=== PATIENT | female | born 1990 | race Caucasian/White ===

== ENCOUNTER 2016-08-15 18:07 | Emergency (ER) | payer OTHER ==
[~2016-08-15] VITALS: Ht 162.6 cm; Wt 77.1 kg
--- NOTE | ~2016-08-15 | EKG ---
[place] [address] [facility] [place] [address] ELECTROCARDIOGRAM REPORT Name: JOVANNA HENRY Room #: [facility] Wright#: [id number] Admission: 08/15/16 Attend Phys: Discharge: 08/15/16 Date of : [birth year] Report #: [id number] THIS REPORT FOR: //name// [facility] ED Test Date: 2016-08-15 Test Time: 18:19:39 Pat Name: JOVANNA HENRY Department: Room: Gender: F Parachute Mender: neha : 1990 Requested By: Jacqui Crockett Order Number: [id number] MD: Noe Sheriff Measurements Intervals [place] Rate: 109 P: 55 [place]: 154 QRS: 47 QRSD: 84 T: 36 QT: 316 QTc: 426 Interpretive Statements Sinus tachycardia Borderline T abnormalities, anterior leads No previous ECG available for comparison Electronically Signed On 08-16-2016 15:58:38 CDT by Noe Sheriff [email or web address] <ELECTRONICALLY SIGNED> By: Noe Sheriff MD, [facility] 08/16/16 1558 1819 1819 Noe Sheriff MD, FACC /EPI
[~2016-08-15 18:07] MED LIST: BACTRIM DS TAB1 EACH PO; LANTUS100 UNIT/M SUBQ; NORCO 5-325 TA1 EACH PO; NOVOLOG100 UNIT/1 SUBQ
[2016-08-15 18:41] LABS: ABSOLUTE NEUTROPHILS 4.9 thou/uL (1.4-8.2); BASOPHILS 0.7 % (0.0-2.0); EOSINOPHILS 3.7 % (0.0-3.0); HEMATOCRIT 41.3 % (37.0-47.0); HEMOGLOBIN 14.1 gm/dL (12.0-15.0); LYMPHOCYTES 26.9 % (24.0-44.0); MCH 28.1 pg (26.0-34.0); MCV 82.5 fL (80.0-100.0); MONOCYTES 7.9 % (1.0-8.0); PLATELET COUNT 301 thou/uL (150-400); POLYS 60.8 % (36.0-66.0); RBC 5.01 mil/uL (4.20-5.00); RDW 12.4 % (10.5-14.5); WBC 8.1 thou/uL (4.0-11.0)
[2016-08-15 18:45] LABS: MANUAL DIFF NO
[2016-08-15 18:52] LABS: URINE BILIRUBIN NEGATIVE (Negative); URINE BLOOD NEGATIVE (Negative); URINE COLOR YELLOW; URINE GLUCOSE-RANDOM* 3+ (Negative); URINE KETONES 1+ (Negative); URINE NITRITE NEGATIVE (Negative); URINE PROTEIN (DIPSTICK) NEGATIVE (Negative); URINE SPECIFIC GRAVITY 1.015 (1.003-1.035); URINE UROBILINOGEN 0.2 E.U./dl (0.2-1.0)
[2016-08-15 18:52] LABS: CALCIUM 9.8 mg/dL (8.5-10.1); CREATININE 0.8 mg/dL (0.6-1.0); POTASSIUM 3.6 mmol/L (3.5-5.1)
[2016-08-15 18:58] LABS: ALBUMIN 3.5 g/dL (3.4-5.0); TOTAL BILIRUBIN 0.5 mg/dL (<0.1-1.0); TOTAL PROTEIN 7.5 g/dL (6.4-8.2)
[2016-08-15 19:02] LABS: AMP/METHAMP Negative (Negative); BARBITURATES Negative (Negative); BENZODIAZEPINES Negative (Negative); COCAINE Negative (Negative); METHADONE Negative (Negative); OPIATES Negative (Negative); PCP Negative (Negative); THC Negative (Negative)
[2016-08-15 20:40] VITALS: BP 121/71
== END 2016-08-15 20:40 | disposition home or self-care (01) ==
LOC: ER 18:07
PROVIDERS: Physician Assistant
DX: R00.0 Tachycardia, unspecified (principal); E11.9 Type 2 diabetes mellitus without complications; Z88.0 Allergy status to penicillin

== ENCOUNTER 2018-11-18 16:50 | Emergency (ER) | payer OTHER ==
[~2018-11-18] VITALS: Ht 162.6 cm; Wt 81.7 kg
[2018-11-18] MEDS ORDERED: NOVOLOG100 UNIT/1 SUBQ (16:57)
[2018-11-18 17:19] LABS: URINE BILIRUBIN NEGATIVE (Negative); URINE BLOOD NEGATIVE (Negative); URINE CLARITY CLEAR; URINE COLOR YELLOW; URINE KETONES NEGATIVE (Negative); URINE LEUKOCYTES-REFLEX NEGATIVE (Negative); URINE NITRITE-REFLEX NEGATIVE (Negative); URINE PROTEIN (DIPSTICK) NEGATIVE (Negative); URINE SPECIFIC GRAVITY 1.025 (1.005-1.035); URINE UROBILINOGEN 0.2 E.U./dl (0.2-1.0)
[2018-11-18 17:23] LABS: URINE GLUCOSE-RANDOM* 3+ (Negative)
[2018-11-18 17:36] LABS: BASOPHILS 0.5 % (0.0-2.0); EOSINOPHILS 1.8 % (0.0-3.0); HEMATOCRIT 39.1 % (37.0-47.0); HEMOGLOBIN 12.7 gm/dL (12.0-15.0); LYMPHOCYTES 17.6 % (24.0-44.0); MCHC 32.5 g/dL (28.0-37.0); MCV 80.1 fL (80.0-100.0); MONOCYTES 7.8 % (1.0-8.0); PLATELET COUNT 299 thou/uL (150-400); POLYS 72.3 % (36.0-66.0); RBC 4.88 mil/uL (4.20-5.00); RDW 14.3 % (10.5-14.5)
[2018-11-18 17:45] LABS: CALCIUM 9.4 mg/dL (8.5-10.1); CREATININE 0.8 mg/dL (0.6-1.0); POTASSIUM 3.8 mmol/L (3.5-5.1)
[2018-11-18 17:50] LABS: BE(vivo) 0.4 mmol/L (-2 to +3); HCO3 25.8 mmol/L (22.0-26.0); PCO2 VENOUS 44.7 mmHg (41.0-51.0); PO2 VENOUS 30.2 mmHg (35.0-45.0)
[2018-11-18 17:52] LABS: ALBUMIN 3.5 g/dL (3.4-5.0); TOTAL BILIRUBIN 0.6 mg/dL (<0.1-1.0); TOTAL PROTEIN 7.1 g/dL (6.4-8.2)
[2018-11-18 18:25] LABS: AMP/METHAMP Negative (Negative); BARBITURATES Negative (Negative); BENZODIAZEPINES Negative (Negative); COCAINE Negative (Negative); METHADONE Negative (Negative); OPIATES Negative (Negative); PCP Negative (Negative)
[2018-11-18 19:24] VITALS: BP 108/68
--- NOTE | 2018-11-20 14:10 | EKG ---
[place] [address] [facility] [place] [address] ELECTROCARDIOGRAM REPORT Name: JOVANNA HENRY Room #: DEP Adriana#: [id number] ������������������ Admission: 11/18/18 ������������������ Attend Phys: Discharge: 11/18/18 ������������������ Date of : [birth year] Report #: [id number] ����������������������������������������������������������������� [id number] THIS REPORT FOR: //name// [facility] ED Test Date: 2018-11-18 Test Time: 16:57:28 Pat Name: JOVANNA HENRY Department: Room: Gender: F Mobile Ui/Ux Designer: JESU : 1990 Requested By: Marek Werner Order Number: [id number] MD: Noe Sheriff Measurements Intervals [place] Rate: 84 P: 68 [place]: 161 QRS: 43 QRSD: 89 T: 47 QT: 369 QTc: 437 Interpretive Statements Sinus rhythm Normal tracing Compared to ECG 08/15/2016 18:19:39 Sinus tachycardia no longer present Electronically Signed On 11-20-2018 14:10:39 CDT by Noe Sheriff [email or web address] ��������������������������������������������� <ELECTRONICALLY SIGNED> ���������������������������������������� By: Noe Sheriff MD, [facility] ��������������������������������������������� 11/20/18 1410 1657 1657 Noe Sheriff MD, FACC /EPI
== END 2018-11-18 19:24 | disposition home or self-care (01) ==
LOC: ER 16:50
PROVIDERS: Emergency Medicine; Physician Assistant
DX: E11.65 Type 2 diabetes mellitus with hyperglycemia (principal); R51 Headache; Z88.0 Allergy status to penicillin; Z79.4 Long term (current) use of insulin

== ENCOUNTER 2021-02-25 14:43 | Emergency (ER) | payer BC, OTHER ==
[~2021-02-25] VITALS: Ht 165.1 cm; Wt 78.0 kg
[2021-02-25] MEDS ORDERED: NAPROSYN500 MG PO (15:08)
[2021-02-25 15:14] VITALS: BP 94/54
== END 2021-02-25 15:15 | disposition home or self-care (01) ==
LOC: ER 14:43
DX: K61.2 Anorectal abscess (principal); E11.9 Type 2 diabetes mellitus without complications; Z79.4 Long term (current) use of insulin; Z88.0 Allergy status to penicillin